=== PATIENT | male | born 1960 | race Hispanic/Latino ===

== ENCOUNTER 2018-08-26 18:55 | Emergency (ER) | payer MEDICAID, OTHER ==
[2018-08-26 18:57] VITALS: RESP 18; O2SAT 99
[2018-08-26 21:03] LABS: BASO # 0.1 K/uL (0.0-0.2); BASO % 0.9 % (0.0-2.0); EOS # 0.1 K/uL (0.0-0.7); EOS % 0.9 % (0.0-4.0); HEMOGLOBIN 14.1 g/dL (12.0-18.0); LYMPH # 1.9 K/uL (1.0-4.3); MEAN CORPUSCULAR HEMOGLOBIN 31.2 pg (27.0-31.0); MEAN CORPUSCULAR HGB CONC 33.9 g/dL (33.0-37.0); MEAN PLATELET VOLUME 9.1 fl (7.2-11.7); MONO # 0.5 K/uL (0.0-0.8); MONO % 6.4 % (0.0-10.0); NEUT # 4.6 K/uL (1.8-7.0); NEUT % 64.8 % (50.0-75.0); NRBC % 0.2 % (0.0-0.0); RBC 4.5 Mil/uL (4.40-5.90); RED CELL DISTRIBUTION WIDTH 13.1 % (11.5-14.5); WHITE BLOOD COUNT 7.1 K/uL (4.8-10.8)
--- NOTE | 2018-08-26 21:11 | ED PDOC ---
HPI: Influenza Time Seen by Provider: 08/26/18 19:18 Chief Complaint: Medical Clearance Chief Complaint (Provider): Flu like symptoms History Per: Patient Exam Limitations: no limitations Symptoms include: fever, bodyaches, vomiting Additional complaint(s):: 58 year old male, who is homeless as of 18 months ago, under police custody presents to the ED complaining of flu like symptoms for 3 days. Patient reports vomiting, subjective fever, bodyaches, and chest pain when he coughs. PMD: none Past Medical History Reviewed: Historical Data, Nursing Documentation, Vital Signs Vital Signs: Last Vital Signs Temp 98.0 F 08/26/18 18:55 Pulse 72 08/26/18 18:55 Resp 18 08/26/18 18:55 BP 141/77 08/26/18 19:05 Pulse Ox 99 08/26/18 18:55 - Medical History PMH: Diverticulitis, Migraine Other PMH: melanoma - Surgical History Other surgeries: surgery for melanoma - Family History Family History: States: Unknown Family Hx - Social History Current smoker - smoking cessation education provided: Yes - Immunization History Hx Tetanus Toxoid Vaccination: No Hx Influenza Vaccination: No Hx Pneumococcal Vaccination: No - Home Medications Home Medications: Ambulatory Orders Medication Instructions Recorded Meclizine HCl [Antivert/25] 1 tab PO TID PRN #25 tab 12/12/15 Cyclobenzaprine [Cyclobenzaprine 10 mg PO HS #10 tab 12/31/15 HCl] Ibuprofen [Motrin] 600 mg PO Q6H #30 tab 12/31/15 Ibuprofen [Motrin] 600 mg PO Q6 #30 tab 05/20/16 Meclizine [Antivert] 50 mg PO TID PRN #30 tab 05/20/16 RX: Cyclobenzaprine [Flexeril] 10 mg PO TID #15 tab 05/20/16 - Allergies Allergies/Adverse Reactions: Allergies Allergy/AdvReac Type Severity Reaction Status Date / Time No Known Allergies Allergy Verified 05/20/16 07:00 Review of Systems ROS Statement: Except As Marked, All Systems Reviewed And Found Negative Constitutional: Positive for: Fever, Other (Bodyaches) Cardiovascular: Positive for: Chest Pain Gastrointestinal: Positive for: Vomiting Physical Exam - Reviewed Nursing Documentation Reviewed: Yes Vital Signs Reviewed: Yes - Physical Exam Appears: Positive for: Non-toxic, No Acute Distress (Appears disheveled with poor hygiene but isnt coughing, no distress, asking for food) Head Exam: Positive for: ATRAUMATIC, NORMOCEPHALIC Skin: Positive for: Normal Color, Warm, Dry Eye Exam: Positive for: Normal appearance ENT: Positive for: Normal ENT Inspection Neck: Positive for: Normal, Painless ROM Cardiovascular/Chest: Positive for: Regular Rate, Rhythm Respiratory: Positive for: Normal Breath Sounds. Negative for: Wheezing, Respiratory Distress Gastrointestinal/Abdominal: Positive for: Normal Exam, Soft. Negative for: Tenderness Extremity: Positive for: Normal ROM Neurologic/Psych: Positive for: Alert, Oriented. Negative for: Motor/Sensory Deficits Medical Decision Making Medical Decision Making: Initial Impression: Flu like symptoms, normal exam and vitals Initial Plan: --CMP --Troponin stat --Chest X-ray --Influenza A B stat 22:10 Labs without significant abnormalities. Flu swab negative. 22:22 Patient evaluated by crisis and stable for discharge with diagnosis of depression by Dr. Pedroza. pt has been comfortably eating throughout ED stay pt is medically and psychatrically cleared for incarceraiton Scribe Attestation: Documented by Von Camargo acting as a scribe for Misha Singh MD. Provider Scribe Attestation: All medical record entries made by the Scribe were at my direction and personally dictated by me. I have reviewed the chart and agree that the record accurately reflects my personal performance of the history, physical exam, medical decision making, and the department course for this patient. I have also personally directed, reviewed, and agree with the discharge instructions and disposition. - Laboratory Results Result Diagrams: 08/26/18 20:48 08/26/18 20:48 - ECG ECG Rhythm: Positive for: Sinus Rhythm (normal) Rate: 73 O2 Sat by Pulse Oximetry: 99 (RA) Pulse Ox Interpretation: Normal Disposition - Clinical Impression Clinical Impression: Viral illness, Depression - Patient ED Disposition Is Patient to be Admitted: No Counseled Patient/Family Regarding: Studies Performed, Diagnosis, Need For Followup - Disposition Disposition: Discharged/Transfer to Law Enforcement Disposition Time: 22:00 Condition: IMPROVED Additional Instructions: follow up with your primary doctor within one week return to the ED with any worsening or concerning symptoms you are medically and psychiatrically cleared for incarceration Instructions: Viral Syndrome (DC), General (DC) Forms: [employer] (Albanian)
[2018-08-26 21:29] LABS: ALB/GLOB RATIO 1.3 (1.0-2.1); ALBUMIN 3.9 g/dL (3.5-5.0); ALT/SGPT 30 U/L (21-72); AST/SGOT 35 U/L (17-59); BLOOD UREA NITROGEN 20 mg/dl (9-20); CALCIUM 8.9 mg/dL (8.4-10.2); GFR NON-AFRICAN AMERICAN > 60
[2018-08-26 23:27] VITALS: BP 138/81; TEMP 98.3
[2018-08-27 00:16] VITALS: PULSE 73
--- NOTE | 2018-08-27 08:13 | RAD ---
Date of service: 08/26/2018 HISTORY: chest pain COMPARISON: No prior. TECHNIQUE: Chest PA and lateral FINDINGS: LUNGS: No active pulmonary disease. PLEURA: No significant pleural effusion identified. No pneumothorax apparent. CARDIOVASCULAR: No aortic atherosclerotic calcification present. Normal cardiac size. No pulmonary vascular congestion. OSSEOUS STRUCTURES: No significant abnormalities. VISUALIZED UPPER ABDOMEN: Normal. OTHER FINDINGS: None. IMPRESSION: No acute cardiopulmonary disease appreciated.
== END 2018-08-26 23:01 ==
LOC: H.ER 18:55
DX: B34.9 Viral infection, unspecified (principal); F32.9 Major depressive disorder, single episode, unspecified